=== PATIENT | female | born 1995 | race Caucasian/White ===

== ENCOUNTER → 2018-05-19 14:04 | Outpatient (REF) | payer OTHER, SELFPAY ==
--- NOTE | 2018-05-19 13:30 | PAPFT_PTH ---
PATIENT: BRADY WHITTEN LOC: [facility] U#:[id number] AGE/SX: 29/F ROOM: RE05/19/[address]: THOMAS Coats : 1995 BED: DIS: SPEC #: [id number] RECD: 05/19/18 17:52 STATUS: RUSH PAEZ #: [id number] BRIAN: 05/19/18 13:[address]: Tiera Velasquez DEPT: [facility] Cytology RECD BY: Desirae Coker Tissues: 1 - CX/ENDOCX FOR PAP SMEARS Procedures: PAP THIN PREP/[facility] Screening Comments: [id number]
== END ==
LOC: LBN 14:04
PROVIDERS: Visit Provider Nurse Practitioner Family
DX: Z12.4 Encounter for screening for malignant neoplasm of cervix (principal)
CPT/HCPCS: 88142

== ENCOUNTER 2019-05-22 14:58 | Outpatient (REF) | payer OTHER, SELFPAY ==
--- NOTE | 2019-05-22 13:30 | PAPFT_PTH ---
PATIENT: BRADY WHITTEN LOC: [facility] U#:[id number] AGE/SX: 23/F ROOM: RE05/22/[address]: THOMAS Coats : 1995 BED: DIS: 05/22/2019 SPEC #: [id number] RECD: 05/22/19 17:35 STATUS: RUSH REMari #: [id number] BRIAN: 05/22/19 13:[address]: Tiera Velasquez DEPT: [facility] Cytology RECD BY: Desirae Coker ENTERED: 05/22/19 17:36 SP TYPE: PAPFT KESHAV DR: Macy Castillo Tissues: 1 - CX/ENDOCX FOR PAP SMEARS Procedures: PAP THIN PREP/[facility] Screening Comments: [id number]
== END 2019-05-22 15:18 ==
LOC: LBN 14:58
PROVIDERS: Visit Provider Nurse Practitioner Family
DX: Z12.4 Encounter for screening for malignant neoplasm of cervix (principal)
CPT/HCPCS: 88142

== ENCOUNTER 2025-03-26 14:56 | Outpatient (REF) | payer BC, SELFPAY ==
--- NOTE | 2025-03-26 14:50 | PAPFT_PTH ---
PATIENT: BRADY WHITTEN LOC: [facility] U#:[id number] AGE/SX: 29/F ROOM: RE03/26/[address]: Lana Alberts DO : 1995 BED: DIS: 03/26/2025 SPEC #: [id number] RECD: 03/26/25 18:07 STATUS: RUSH REQ #: [id number] BRIAN: 03/26/25 14:[address]: Lana Alberts DEPT: [facility] Cytology RECD BY: Desirae Coker ENTERED: 03/26/25 18:07 SP TYPE: PAPFT OTHR DR: Lynda Shahid Tissues: 1 - CX/ENDOCX FOR PAP SMEARS Procedures: PAP THIN PREP/[facility] Screening HPV DNA PROBE Comments: [id number] (HPV 16 & 18/45)
== END 2025-03-26 14:57 | disposition home or self-care (01) ==
LOC: LBN 14:56
PROVIDERS: PCP Internal Medicine; Visit Provider Obstetrics & Gynecology
DX: Z12.4 Encounter for screening for malignant neoplasm of cervix (principal)
CPT/HCPCS: 88142; 87624

== ENCOUNTER 2025-03-26 15:59 | Outpatient (CLI) | payer BC, SELFPAY ==
[2025-03-26 16:46] LABS: TSH (W/Ref FT4) 2.35 uIU/mL (0.36-3.74)
[2025-03-26 22:54] LABS: Prolactin 6.5 ng/mL (See Note)
[2025-03-26 23:02] LABS: FSH 6.6 mIU/mL (See Note); LH 3.9 mIU/mL (See Note)
[2025-04-03 21:11] LABS: 17-Hydroxyprogesterone <40 ng/dL
== END 2025-03-26 16:00 | disposition home or self-care (01) ==
LOC: LBO 16:00
PROVIDERS: PCP Internal Medicine; Visit Provider Obstetrics & Gynecology
DX: N92.6 Irregular menstruation, unspecified (principal)
CPT/HCPCS: 36415; 83498; 83001; 83002; 84146; 84443